=== PATIENT | female | born 1990 | race Caucasian/White ===

== ENCOUNTER 2021-05-12 08:55 | Outpatient (CLI) | payer OTHER, SELFPAY ==
--- NOTE | 2021-05-12 09:08 | XR_ITS ---
WS: [id number] Exam: XR hip LT 2-3V wo/w pel* [id number] Date/Time of Exam: 05/12/2021 9:09 AM Reason For Exam: BACK PAIN, SACROILIAC JOINT PAIN Findings: No fractures or bone anomalies are noted. No unusual soft tissue masses or calcifications are seen. The bony elements of the hip are in adequate alignment. XR/XR hip LT 2-3V wo/w pel* [id number] IMPRESSION: Negative left hip. Tonnis classification: 0
--- NOTE | 2021-05-12 09:08 | XR_ITS ---
WS: [id number] Exam: XR sacroiliac jts m 3V [id number] Date/Time of Exam: 05/12/2021 9:09 AM Reason For Exam: BACK PAIN, SACROILIAC JOINT PAIN No fracture or dislocation. 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 The SI joints are open. No sign of bone destruction. Surgical clips in the right pelvis. XR/XR sacroiliac jts m 3V [id number] IMPRESSION: 1. 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 No other significant finding.
--- NOTE | 2021-05-12 09:08 | XR_ITS ---
WS: [id number] Findings: In the AP projection, the lumbar spine is straight. The sacroiliac joints are open. The facet struc tures are bilaterally symmetrical. In the lateral projection, the lumbar curve is well maintained. The intervertebral disc spaces are intact. No fractures or anomalies of the lumbar spine are noted. XR/XR lumbar spine 2-3V* [id number] IMPRESSION: Negative lumbar spine.
== END 2021-05-12 08:56 | disposition home or self-care (01) ==
PROVIDERS: PCP Family Medicine; Visit Provider Family Medicine
DX: M53.3 Sacrococcygeal disorders, not elsewhere classified (principal); M54.50 Low back pain, unspecified; M46.1 Sacroiliitis, not elsewhere classified
CPT/HCPCS: 72100; 72202; 73502

== ENCOUNTER 2021-08-20 07:35 | Outpatient (CLI) | payer OTHER, SELFPAY ==
--- NOTE | 2021-08-20 07:42 | MR_ITS ---
WS: [id number] MRI LUMBAR SPINE NONCONTRAST TECHNIQUE: Sagittal T1, T2 and STIR imaging. Axial T1 and T2 imaging. CLINICAL INFORMATION: BACK PAIN;REFRACTOR LUMBAR PAIN, DECREASED ROM COMPARISON: None. FINDINGS: Mild lumbar curve. No acute compression. Small central protrusion L5-S1 with slight effacement of donna tral thecal sac. L1-L2: Normal. L2-L3: No significant disc bulging. Spinal canal and foramen are patent. L3-L4: No significant disc bulging. Mild facet arthropathy. Spinal canal and foramen are patent. L4-L5: Minimal annular bulging. Mild facet arthropathy. Spinal canal and foramen are patent. L5-S1: Small central/LEFT pericentral protrusion with slight effacement of ventral thecal sac. Slight encroachment traversing LEFT greater than RIGHT S1 nerve roots. Spinal canal is patent. Foramen are patent. Mild facet arthropathy. Visualized pelvic bony structures: Normal. Paravertebral soft tissues: Normal. MR/MR lumbar spine wo con* [id number] IMPRESSION: 1. Mild lumbar curve. No acute compression or no high-grade central canal sten osis. 2. Central disc protrusion L5-S1 with indentation of the ventral thecal sac. S light encroachment traversing LEFT greater than RIGHT S1 nerve roots. 3. Correlation LEFT S1 nerve root symptoms. 4. Minimal annular bulging L4-L5. 5. Mild facet arthropathy L4-L5 and L5-S1.
== END 2021-08-20 07:36 | disposition home or self-care (01) ==
LOC: RAD 07:37
PROVIDERS: PCP Family Medicine; Visit Provider Family Medicine
DX: M51.27 Other intervertebral disc displacement, lumbosacral region (principal); M51.26 Other intervertebral disc displacement, lumbar region; M47.816 Spondylosis without myelopathy or radiculopathy, lumbar region; M47.817 Spondylosis without myelopathy or radiculopathy, lumbosacral region
CPT/HCPCS: 72148

== ENCOUNTER → 2025-01-29 10:09 | Outpatient (BNVA) | payer OTHER, SELFPAY | PROVIDERS: PCP Family Medicine; Visit Provider Family Medicine | DX: R11.0 Nausea (principal); E03.9 Hypothyroidism, unspecified | CPT/HCPCS: 80053; 82785; 83690; 84436; 84443; 84481; 85025; 86001; 86003; 86140 ==

== ENCOUNTER → 2025-02-08 08:41 | Outpatient (BNVA) | payer OTHER, SELFPAY | PROVIDERS: PCP Family Medicine; Visit Provider Family Medicine | DX: Z91.014 Allergy to mammalian meats (principal); R11.0 Nausea | CPT/HCPCS: 86003; 86008 ==